=== PATIENT | male | born 1985 | race Caucasian/White ===

== ENCOUNTER 2016-12-25 21:15 | Inpatient (IN) | payer SELFPAY ==
[~2016-12-25] VITALS: Ht 175.3 cm; Wt 59.6 kg
[~2016-12-25 21:15] MED LIST: AMOX TR-K CLV1 EAC4 PO; AUGMENTIN875 MG PO; LIBRIUM25 MG PO; NO HOME MEDS; ZOLOFT100 MG PO
[2016-12-25 21:55] LABS: HEMATOCRIT 43.5 % (38.0-50.0); MCH 29.3 PG (29.0-34.0); MCV 86.1 FL (86-99); PLATELET COUNT 316 K/uL (156-360); RBC DIS.WIDTH-SD 40.2 % (39-53); RED BLOOD COUNT 5.05 M/uL (4.00-5.50); WHITE BLOOD COUNT 8.8 K/uL (4.1-10.2)
[2016-12-25 22:08] LABS: CHLORIDE 110 mEq/L (99-109); POTASSIUM 3.5 mEq/L (3.7-5.4); SODIUM 146 mEq/L (136-147)
[2016-12-25 22:10] LABS: GLUCOSE 91 mg/dL (70-99)
[2016-12-25 22:11] LABS: ANION GAP 15 MEQ/L (2-14)
[2016-12-25 22:13] LABS: SERUM ETHYL ALCOHOL 223 mg/dL
[2016-12-25 22:14] LABS: GFR ESTIMATE (CALCULATED) > 59 mL/min/
[2016-12-25 22:15] LABS: UREA NITROGEN (BUN) 8 mg/dL (9-23)
[2016-12-25 22:17] LABS: SALICYLATE < 5.0 MG/DL (15-30)
[2016-12-26 06:52] LABS: BILIRUBIN NEGATIVE; BLOOD NEGATIVE; COLOR YELLOW ((YELLOW)); GLUCOSE (STRIP) NEGATIVE; KETONES NEGATIVE; LEUKOCYTES NEGATIVE; NITRITE NEGATIVE; PROTEIN (STRIP) 30; SPECIFIC GRAVITY 1.023 (1.000-1.030); UROBILINOGEN 0.2 MG/DL (0.2-1.0)
[2016-12-26 06:56] LABS: ADD MIUA? NO; UCUL ADDED? NO
[2016-12-26 07:00] LABS: COCAINE PRESUMPTIVE POSITIVE (150 ng/mL); PHENCYCLIDINE NEGATIVE (25 ng/mL); THC CANNABINOIDS NEGATIVE (50 ng/mL)
[2016-12-26 07:01] LABS: ADD MEDTOX COMMENT Y; AMPHETAMINE NEGATIVE (500 ng/mL); BARBITURATES NEGATIVE (200 ng/mL); BENZODIAZEPINES NEGATIVE (150 ng/mL); INTERNAL CONTROLS VALID? YES; METHADONE NEGATIVE (200 ng/mL); METHAMPHETAMINE NEGATIVE (500 ng/mL); OPIATES (MORPHINE) PRESUMPTIVE POSITIVE (100 ng/mL); OXYCODONE NEGATIVE (100 ng/mL); PROPOXYPHENE NEGATIVE (300 ng/mL); TRICYCLIC ANTIDEPRESSANTS NEGATIVE (300 ng/mL)
[2016-12-26 14:26] VITALS: BP 130/75
[2016-12-26 15:19] VITALS: BP 130/75
[2016-12-27 07:29] VITALS: BP 119/66
[2016-12-27 15:44] VITALS: BP 126/64
[2016-12-28 07:33] VITALS: BP 108/65
== END 2016-12-28 12:54 | disposition home or self-care (01) | DRG 881 ==
LOC: EME 21:15 → 1WEST 12-26 12:07 → EDOF 12-26 12:07 → 1WEST 12-26 14:01
PROVIDERS: Emergency Medicine
DX: F32.9 Major depressive disorder, single episode, unspecified (principal); F17.200 Nicotine dependence, unspecified, uncomplicated; R45.851 Suicidal ideations; F11.20 Opioid dependence, uncomplicated; F12.10 Cannabis abuse, uncomplicated; R56.9 Unspecified convulsions; F10.229 Alcohol dependence with intoxication, unspecified; Z59.0 Homelessness; Z88.8 Allergy status to other drugs, medicaments and biological substances
CPT/HCPCS: 80048; 81003; 83735; 84999; 85027; 90837; 99281; 99285; G0480; Q0177

== ENCOUNTER 2017-01-10 22:45 | Emergency (ER) | payer SELFPAY ==
[~2017-01-10] VITALS: Ht 175.3 cm; Wt 62.5 kg
[2017-01-10 23:23] LABS: BASOPHIL COUNT 0.1 K/uL (0-0.1); EOSINOPHIL (%) 0.5 % (0-5); HEMATOCRIT 45.8 % (38.0-50.0); IMMATURE GRANULOCYTE (%) 0.1 % (0.0-0.7); INSTRUMENT ABS NEUTROPHIL CT 2.6 K/uL; LYMPHOCYTE COUNT 4.3 K/uL (1.0-2.8); MCH 29.2 PG (29.0-34.0); MCHC 33.8 G/DL (30.0-36.0); MCV 86.3 FL (86-99); MEAN PLAT.VOLUME 8.9 uM^3 (9.0-12.4); MONOCYTE (%) 6.8 % (3-12); MONOCYTE COUNT 0.5 K/uL (0-0.8); NEUTROPHIL (%) 34.9 % (45-76); NEUTROPHIL COUNT 2.6 K/uL (1.8-6.4); PLATELET COUNT 311 K/uL (156-360); RBC DIS.WIDTH-CV 13.1 % (11.8-14.6); RBC DIS.WIDTH-SD 40.8 % (39-53); RED BLOOD COUNT 5.31 M/uL (4.00-5.50); WHITE BLOOD COUNT 7.5 K/uL (4.1-10.2)
[2017-01-10 23:33] LABS: CHLORIDE 108 mEq/L (99-109); POTASSIUM 3.7 mEq/L (3.7-5.4); SODIUM 146 mEq/L (136-147)
[2017-01-10 23:35] LABS: GLUCOSE 93 mg/dL (70-99)
[2017-01-10 23:36] LABS: ANION GAP 14 MEQ/L (2-14)
[2017-01-10 23:38] LABS: SERUM ETHYL ALCOHOL 360 mg/dL
[2017-01-10 23:39] LABS: GFR ESTIMATE (CALCULATED) > 59 mL/min/
[2017-01-10 23:40] LABS: UREA NITROGEN (BUN) 12 mg/dL (9-23)
[2017-01-11 10:02] VITALS: BP 119/79
== END 2017-01-11 10:24 | disposition home or self-care (01) ==
LOC: EME 22:45
PROVIDERS: Emergency Medicine
DX: F10.129 Alcohol abuse with intoxication, unspecified (principal); F32.9 Major depressive disorder, single episode, unspecified; R45.851 Suicidal ideations
CPT/HCPCS: 80048; 85025; 90837; 99281; 99285; G0480

== ENCOUNTER 2017-01-28 15:17 | Emergency (ER) | payer SELFPAY ==
[~2017-01-28] VITALS: Ht 175.3 cm; Wt 66.5 kg
[2017-01-28 22:33] VITALS: BP 121/69
== END 2017-01-28 22:33 | disposition home or self-care (01) ==
LOC: EME 15:17
DX: R55 Syncope and collapse (principal); R56.9 Unspecified convulsions; R51 Headache; B19.20 Unspecified viral hepatitis C without hepatic coma; F17.200 Nicotine dependence, unspecified, uncomplicated
CPT/HCPCS: 70160; 70450; 72125; 93005; 99281; 99285; G0480; J2310